=== PATIENT | male | born 1965 | race Caucasian/White ===

== ENCOUNTER 2020-06-23 18:44 | Emergency (ER) | payer OTHER, SELFPAY ==
--- NOTE | ~2020-06-23 | CT_ITS ---
EXAMINATION: CT abdomen pelvis w con INDICATION: Lower abdominal pain TECHNIQUE: Computed tomographic images of the abdomen and pelvis were obtained after the administrati on of 100 cc of Omnipaque 350 intravenous contrast. The dose-length product (DLP) was 1119.53 mGy-cm. Automated exposure control and iterative reconstruction technique were employed. COMPARISON: None available FINDINGS: Minimal dependent atelectasis is present in the lung bases. The heart size is normal. Cysts of the liver measure up to 4.3 cm in the left hepatic lobe. The spleen, pancreas, gallbladder, and a drenal glands are normal. The kidneys are unremarkable. No pathologically enlarged abdominal or pelvi c lymph nodes are identified. There is no free intraperitoneal gas or evidence of bowel obstruction. Colonic diverticulosis is present without evidence of diverticulitis. There is a circumscribed area o f fat attenuation seen anterior to the distal descending colon with surrounding fat stranding. The ap pendix is normal. There is a small fat-containing umbilical hernia. There is moderate lumbar spondylo sis at L5-S1. IMPRESSION: 1. Findings consistent with epiploic appendagitis in the left lower quadrant. Differential would incl ude omental infarct. Reviewed, dictated and finalized at location A. ROUND LOGGER IMPRESSION: 1. Findings consistent with epiploic appendagitis in the left lower quadrant. D ifferential would include omental infarct.
[2020-06-23 19:30] VITALS: BP 139/88; PULSE 83; RESP 18; TEMP 36.8; O2SAT 98
[2020-06-23 19:45] LABS: Basophils Absolute Auto 0.1 K/mm3 (0.0-0.1); Basophils Percent Auto 0.5 % (0.2-1.2); Eosinophils Absolute Auto 0.1 K/mm3 (0-0.3); Eosinophils Percent Auto 0.9 % (0-4.4); Hematocrit 44.5 % (42.0-52.0); Hemoglobin 15.1 g/dL (14.0-18.0); Immature Granulocyte Absolute 0.03 K/mm3 (0.00-0.031); Immature Granulocyte Percent A 0.3 % (0-0.5); Lymphocytes Absolute Auto 2.39 K/mm3 (0.9-3.2); Lymphocytes Percent Auto 23.2 % (18.3-44.2); Mean Corpuscular HGB Conc 33.9 g/dl (32-36); Mean Corpuscular Hemoglobin 29.4 pg (26-34); Mean Corpuscular Volume 86.6 fl (80-100); Mean Platelet Volume 9.8 fl (7.4-10.4); Monocytes Absolute Auto 0.8 K/mm3 (0.1-0.6); Monocytes Percent Auto 7.8 % (2.6-8.5); Neutrophils Percent Auto 67.3 % (45.5-73.1); Platelet Count Result 206 k/mm3 (150-375); Red Blood Count 5.14 M/mm3 (4.6-6.20); Red Cell Distribution Width 11.9 % (11.5-14.5); White Blood Count 10.3 K/mm3 (4.5-10.0)
[2020-06-23 19:58] LABS: Alanine Aminotransferase 14 U/L (4-50); Albumin Level 4.3 g/dL (3.5-5.1); Alkaline Phosphatase 74 U/L (38-126); Anion Gap 9 mmol/L (8-16); Aspartate Amino Transferase 27 U/L (17-59); Bilirubin,Total 0.6 mg/dL (0.2-1.3); Blood Urea Nitrogen 17 mg/dL (9-20); Calcium 9.1 mg/dL (8.4-10.2); Carbon Dioxide 28 mmol/L (22-30); Chloride 103 mmol/L (98-107); Estimated CRCL calculation 71 ml/min; Estimated Glomerular Filt Rate 58; Glucose 134 mg/dL (75-110); Lipase 151 U/L (23-300); Potassium 3.7 mmol/L (3.4-5.0); Sodium 140 mmol/L (137-145)
[2020-06-23 22:20] VITALS: BP 168/88; PULSE 70; RESP 18; O2SAT 100
[2020-06-24 00:57] VITALS: BP 173/94; PULSE 75; RESP 16; O2SAT 98
[2020-06-24 01:10] LABS: Add Urine Microscopic? NO; Appearance Urine Clear (Clear); Bilirubin Urine Negative (Negative); Blood Urine Negative (Negative); Color Urine Yellow (Yellow); Glucose Urine UA Negative (Negative); Ketones Urine Negative (Negative); Leukocyte Esterase Ur Negative LEU/UL (Negative); Nitrate Urine Negative (Negative); Protein Urine Negative (Negative); Specific Grav Ur 1.023 (1.001-1.035); Urobilinogen Urine Negative mg/dL (<2.0)
--- NOTE | 2020-06-24 01:36 | ED.ABDPAIN ---
HPI - Abdominal Pain General Chief Complaint: Abdominal Pain Stated Complaint: abd pain Time Seen by Provider: 06/24/20 00:53 Source: patient Mode of arrival: ambulatory Limitations: no limitations History of Present Illness HPI narrative: This patient is a 54 year old male who presents for evaluation of left lower abdominal pain for 4 days. His pain has been constant and he states it has worsened. He denies nausea, vomiting . He does reports diarrhea and a low grade temperature of 99.5 F yesterday. He denies any urinary complaints. His pain is currently 6/10, and he states it increases with standing up. Review of Systems Review of Systems: All systems reviewed & are unremarkable except as noted in HPI and below Constitutional: Constitutional: Denies chills and Denies fever(s) Cardiovascular: Cardiovascular: Denies chest pain Respiratory: Respiratory: Denies cough and Denies dyspnea Gastrointestinal: Gastrointestinal: Reports abdominal pain Genitourinary: Genitourinary: Denies hematuria, Denies dysuria and Denies urinary frequency Musculoskeletal: Musculoskeletal: Denies back pain PMFSH Past Medical History Medical History (Updated 06/24/20 @ 03:05 by Olivia Jacobsen MD) Hyperlipidemia Surgical History Surgical History (Updated 06/24/20 @ 01:41 by Olivia Jacobsen MD) No significant past surgical history Social History Social History (Updated 06/24/20 @ 01:41 by Olivia Jacobsen MD) Smoking status: Never smoker Exam Const: General: alert Orientation/consciousness: patient oriented x3 Eyes: EOM: EOMs intact bilaterally Resp: Effort & Inspection: normal respiratory effort and no retractions Auscultation: clear to auscultation bilaterally Cardio: Rate: regular rate Rhythm: regular rhythm Heart sounds: no murmurs GI: GI Palp: Yes Soft to palpation, Yes Tenderness to palpation present (GI) (LLq), Yes Guarding due to palpation present (GI) (voluntary guarding), No Rigid due to palpation and No Hernia present Auscultation: normal bowel sounds Skin: General skin exam: normal color Rashes: no rashes Neuro: General: patient oriented x3 and moves all extremities Extrem: General: normal to inspection Psych: Mental Status: mental status grossly normal Affect: normal affect Course Reevaluation(s) Reevaluation #1: I discussed with patient that CT shows epiploic appendagitis. I discussed discharge plan and treatment Date: 06/24/20 Time: 03:02 Vital Signs Vital signs: Vital Signs Temperature 98.2 F 06/23/20 19:30 Pulse Rate 83 06/23/20 19:30 Respiratory Rate 18 06/23/20 19:30 Blood Pressure 139/88 06/23/20 19:30 Pulse Oximetry 98 06/23/20 19:30 Temperature 98.2 F 06/23/20 19:30 Pulse Rate 75 06/24/20 00:57 Respiratory Rate 16 06/24/20 00:57 Blood Pressure 173/94 H 06/24/20 00:57 Pulse Oximetry 98 06/24/20 00:57 MDM - Abdominal Pain Lab Data Attestation: I reviewed the patient's lab results. Result diagrams: 06/23/20 19:37 06/23/20 19:37 Labs: Lab Results 06/23/20 06/23/20 06/24/20 Range/Units 19:37 19:37 00:49 WBC 10.3 H (4.5-10.0) K/mm3 RBC 5.14 (4.6-6.20) M/mm3 Hgb 15.1 (14.0-18.0) g/dL Hct 44.5 (42.0-52.0) % MCV 86.6 (80-100) fl MCH 29.4 (26-34) pg MCHC 33.9 (32-36) g/dl RDW 11.9 (11.5-14.5) % Plt Count 206 (150-375) k/mm3 MPV 9.8 (7.4-10.4) fl Immature Gran % (Auto) 0.3 (0-0.5) % Neut % (Auto) 67.3 (45.5-73.1) % Lymph % (Auto) 23.2 (18.3-44.2) % [place] % (Auto) 7.8 (2.6-8.5) % Eos % (Auto) 0.9 (0-4.4) % Baso % (Auto) 0.5 (0.2-1.2) % Lymph # (Auto) 2.39 (0.9-3.2) K/mm3 [place] # (Auto) 0.8 H (0.1-0.6) K/mm3 Eos # (Auto) 0.1 (0-0.3) K/mm3 Baso # (Auto) 0.1 (0.0-0.1) K/mm3 Abs Immat Gran (auto) 0.03 (0.00-0.031) K/mm3 Absolute Neuts (auto) 7.0 H (1.3-6.7) K/mm3 Absolute Nucleated RBC 0.0
== END 2020-06-24 03:13 | disposition home or self-care (01) ==
PROVIDERS: Emergency Medicine; Emergency Provider General Practice; PCP Nurse Practitioner
DX: K63.89 Other specified diseases of intestine (principal); E78.5 Hyperlipidemia, unspecified
CPT/HCPCS: 36415; 74177; 80053; 81003; 83690; 85025; 99284; Q9967

== ENCOUNTER 2023-07-10 03:10 | Emergency (ER) | payer OTHER, SELFPAY ==
--- NOTE | ~2023-07-10 | XR_ITS ---
Portable chest x-ray Comparison: None Clinical History: Cough Findings: Lungs are clear, without focal consolidation or pleural effusion. Cardiomediastinal silho uette is unremarkable. Bones and soft tissues are unremarkable. Impression: Clear lungs. Reviewed, dictated and finalized at location M. [employer] MANAGER Impression: Clear lungs.
[2023-07-10 03:12] VITALS: BP 176/68; PULSE 68; RESP 18; TEMP 37.1; O2SAT 98
[2023-07-10 05:24] VITALS: O2SAT 98
[2023-07-10 06:11] LABS: Influenza A QL RT-PCR Negative (Negative); Influenza B QL RT-PCR Negative (Negative); RSV RNA, RT-PCR Negative (Negative); SARS-CoV-2 RNA PCR Negative (Negative)
--- NOTE | 2023-07-10 07:26 | ECG_ITS ---
Measurements Intervals [place] Rate: 64 P: 42 DE: 185 QRS: -28 QRSD: 89 T: 14 QT: 368 QTc: 380 Interpretive Statements SINUS RHYTHM BORDERLINE LEFT AXIS DEVIATION [QRS AXIS < -20] BORDERLINE ECG NO PREVIOUS ECG AVAILABLE FOR COMPARISON Electronically Signed On 07-10-2023 13:26:54 [employer] by Cisco Kinney M.D.
--- NOTE | 2023-07-10 07:52 | ED.URI ---
HPI - URI/Sore Throat General Chief Complaint: Upper Respiratory Infection Stated Complaint: weakness Time Seen by Provider: 07/10/23 07:00 History of Present Illness HPI Narrative: Patient states that he has noticed over last couple years that he will sometimes wake up feeling sweats and anxious like his heart is racing, he has no doctor but occasionally goes to the health clinic and had been told that his labs looked fine. Only history is high cholesterol. No chest pain, does not use drugs or smoke cigarettes, only drinks 1 coffee a day. Related Data Allergies Allergy/AdvReac Type Severity Reaction Status Date / Time No Known Allergies Allergy Verified 07/10/23 05:25 Review of Systems Review of Systems: All systems reviewed & are unremarkable except as noted in HPI and below PMFSH Past Medical History Medical History (Updated 07/10/23 @ 09:22 by Sanjuanita Aguilar MD) Hyperlipidemia Surgical History Surgical History (Updated 06/24/20 @ 01:41 by Olivia Jacobsen MD) No significant past surgical history Social History Social History (Updated 06/24/20 @ 01:41 by Olivia Jacobsen MD) Smoking status: Never smoker Exam Narrative: EXAMINATION OF ORGAN SYSTEMS/BODY AREAS: Constitutional: Vital signs per nursing GENERAL:[No acute distress, non-toxic appearing.] HEAD: Normal with no signs of head trauma. EYES: EOMI, conjunctiva normal ENT: Hearing grossly intact LUNGS: Nonlabored breathing. Clear to auscultation bilaterally HEART: [Regular rate and rhythm] ABD: [Soft], [nontender to palpation] EXT: Normal range of motion SKIN: [No rashes or lesions.] NEURO: [Alert and oriented x 3. No gross focal sensory or strength deficits.] PSYCH: Normal affect Course Vital Signs Vital signs: Vital Signs Temperature 98.8 F 07/10/23 03:12 Pulse Rate 68 07/10/23 03:12 Respiratory Rate 18 07/10/23 03:12 Blood Pressure 176/68 H 07/10/23 03:12 Pulse Oximetry 98 07/10/23 03:12 Oxygen Delivery Room Air 07/10/23 03:12 Temperature 98.8 F 07/10/23 03:12 Pulse Rate 86 07/10/23 09:29 Respiratory Rate 16 07/10/23 09:29 Blood Pressure 158/86 H 12/01/23 09:29 Pulse Oximetry 99 07/10/23 09:29 Oxygen Delivery Room Air 07/10/23 05:24 MDM - URI/Sore Throat MDM Narrative Medical decision making narrative: Patient presenting with concern that he has intermittent sensation of palpitations and sweats, he is otherwise feeling well, on exam normal cardiopulmonary exam, he is well-appearing in no distress, basic labs obtained are unremarkable, troponin is negative, TSH is negative, vital signs are stable other than slightly elevated blood pressure which did improve without any further intervention. I have let the patient know he needs to f/u with his PCP for further workup and he is agreeable to this. Lab Data 07/10/23 07:52 07/10/23 07:52 Labs: Lab Results 07/10/23 07/10/23 07/10/23 Range/Units 05:29 07:52 07:52 WBC 7.4 (4.5-10.0) K/mm3 RBC 5.24 (4.6-6.20) M/mm3 Hgb 15.3 (14.0-18.0) g/dL Hct 45.5 (42.0-52.0) % MCV 86.8 (80-100) fl MCH 29.2 (26-34) pg MCHC 33.6 (32-36) g/dl RDW 12.3 (11.5-14.5) % Plt Count 213 (150-375) k/mm3 MPV 9.7 (7.4-10.4) fl Immature Gran % (Auto) 0.3 (0-0.5) % Neut % (Auto) 62.4 (45.5-73.1) % Lymph % (Auto) 27.8 (18.3-44.2) % [place] % (Auto) 7.8 (2.6-8.5) % Eos % (Auto) 1.2 (0-4.4) % Baso % (Auto) 0.5 (0.2-1.2) % Lymph # (Auto) 2.07 (0.9-3.2) K/mm3 [place] # (Auto) 0.6 (0.1-0.6) K/mm3 Eos # (Auto) 0.1 (0-0.3) K/mm3 Baso # (Auto) 0.0 (0.0-0.1) K/mm3 Abs Immat Gran (auto) 0.02 (0.00-0.031) K/mm3 Absolute Neuts (auto) 4.6 (1.3-6.7) K/mm3 Absolute Nucleated RBC 0.0 (0.0-0.012) K/mm3 Nucleated RBC % 0.0 (0.0-0.2) % Sodium Cancelled 139 Potassium Cancelled Chloride Carbon Dioxide Anion
[2023-07-10 08:08] LABS: Basophils Percent Auto 0.5 % (0.2-1.2); Eosinophils Absolute Auto 0.1 K/mm3 (0-0.3); Eosinophils Percent Auto 1.2 % (0-4.4); Hematocrit 45.5 % (42.0-52.0); Hemoglobin 15.3 g/dL (14.0-18.0); Immature Granulocyte Absolute 0.02 K/mm3 (0.00-0.031); Immature Granulocyte Percent A 0.3 % (0-0.5); Lymphocytes Absolute Auto 2.07 K/mm3 (0.9-3.2); Lymphocytes Percent Auto 27.8 % (18.3-44.2); Mean Corpuscular HGB Conc 33.6 g/dl (32-36); Mean Corpuscular Hemoglobin 29.2 pg (26-34); Mean Corpuscular Volume 86.8 fl (80-100); Mean Platelet Volume 9.7 fl (7.4-10.4); Monocytes Absolute Auto 0.6 K/mm3 (0.1-0.6); Monocytes Percent Auto 7.8 % (2.6-8.5); Neutrophils Absolute Auto 4.6 K/mm3 (1.3-6.7); Neutrophils Percent Auto 62.4 % (45.5-73.1); Platelet Count Result 213 k/mm3 (150-375); Red Blood Count 5.24 M/mm3 (4.6-6.20); Red Cell Distribution Width 12.3 % (11.5-14.5); White Blood Count 7.4 K/mm3 (4.5-10.0)
[2023-07-10 08:21] LABS: Alanine Aminotransferase 21 U/L (6-50); Albumin Level 4.4 g/dL (3.5-5.1); Alkaline Phosphatase 76 U/L (38-126); Anion Gap 11 mmol/L (8-16); Aspartate Amino Transferase 31 U/L (17-59); Blood Urea Nitrogen 14 mg/dL (9-20); Calcium 9.2 mg/dL (8.4-10.2); Carbon Dioxide 24 mmol/L (22-30); Chloride 104 mmol/L (98-107); Estimated CRCL calculation 75 ml/min; Estimated Glomerular Filt Rate > 60; Glucose 94 mg/dL (65-110); Potassium 4.1 mmol/L (3.4-5.0); Sodium 139 mmol/L (137-145)
[2023-07-10 08:40] LABS: Troponin I < 0.012 ng/mL (0.000-0.034)
[2023-07-10 09:29] VITALS: BP 158/86; PULSE 86; RESP 16; O2SAT 99
== END 2023-07-10 09:39 | disposition home or self-care (01) ==
PROVIDERS: Emergency Medicine; Emergency Provider Emergency Medicine; PCP Nurse Practitioner
DX: R00.2 Palpitations (principal); Z20.822 Contact with and (suspected) exposure to COVID-19; E78.5 Hyperlipidemia, unspecified; R94.31 Abnormal electrocardiogram [ECG] [EKG]
CPT/HCPCS: 36415; 71045; 80053; 84443; 84484; 85025; 87637; 93005; 99284

== ENCOUNTER 2023-08-07 12:41 | Outpatient (CLI) | payer OTHER, SELFPAY ==
--- NOTE | 2023-08-11 17:22 | WPDHOLTEREM ---
Holter/Event Monitor Holter/Event Monitor Date of procedure: 08/07/23 Holter/Event Procedure: 48 Hr Holter Monitor Indications: Palpitations Conclusion: 1. 48 hour holter monitor on 08/07/23. 2. Predominant rhythm is sinus rhythm. HR range 43-122 bpm; average HR 63 bpm. HR at 43 bpm was at 02:34. 3. There are 33 premature supraventricular complexes and 1 supraventricular couplet. There is 1 episode of atrial tachycardia at 160 bpm lasting 5 beats at 14:40. 4. There are 842 premature ventricular complexes and 2 ventricular couplets. No ventricular tachycardia. 5. No sinoatrial or atrioventricular blocks. No significant pauses greater than 2 seconds. 6. Patient reports symptoms of heavy heart beats and heart fluttering which demonstrate sinus rhythm, HR range 63-114 bpm.
== END 2023-08-07 12:42 | disposition home or self-care (01) ==
LOC: ANHCARD 12:43
PROVIDERS: PCP Nurse Practitioner; Visit Provider Nurse Practitioner Adult Health
DX: R00.2 Palpitations (principal)
CPT/HCPCS: 93225; 93226